=== PATIENT | female | born 1990 | race African-American/Black ===

== ENCOUNTER 2018-04-25 04:28 | Emergency (ER) | payer MEDICAID, OTHER ==
[2018-04-25] MEDS ORDERED: OLANZapine 10 MG/2 ML VIAL IM ONE (04:41)
--- NOTE | 2018-04-25 04:45 | EDPHY ---
H & P Source: Patient, EMS Time Seen by Provider: 04/25/18 04:41 HPI/ROS: HPI CHIEF COMPLAINT: Paranoid HISTORY OF PRESENT ILLNESS: 27-year-old female, history of bipolar disorder, states she recently got out of [facility], down in [place]. She states she got out of the yesterday and somehow ended up in [place]. 911 was called this evening from [facility] as there is concerned about a person acting very strange. EMS make contact with her and she is very paranoid and was brought to the emergency room for evaluation. Upon arrival to the emergency room the patient is very paranoid appears disabled , she is looking around the room asking us to open and close cabinets she is concerned there is something in there. She appears to be having visual hallucinations. Patient states she has not take any of her medications since being discharged from [facility]. States she stayed there for 3 days. Past Medical History: Bipolar disorder Past Surgical History: Denies surgical history Social History: Admits to recent methamphetamine use, denies alcohol. Family History: Noncontributory ROS REVIEW OF SYSTEMS: limited due to patient's mental state. Exam Constitutional triage nursing summary reviewed, vital signs reviewed, awake/ alert. Eyes normal conjunctivae and sclera, EOMI, PERRLA. HENT normal inspection, atraumatic, moist mucus membranes, no epistaxis, neck supple/ no meningismus, no raccoon eyes. Respiratory clear to auscultation bilaterally, normal breath sounds, no respiratory distress, no wheezing. Cardiovascular rate normal, regular rhythm, no murmur, no edema, distal pulses normal. Gastrointestinal soft, non-tender, no rebound, no guarding, normal bowel sounds, no distension, no pulsatile mass. Genitourinary no CVA tenderness. Musculoskeletal no midline vertebral tenderness, full range of motion, no calf swelling, no tenderness of extremities, no meningismus, good pulses, neurovascularly intact. Skin pink, warm, & dry, no rash, skin atraumatic. Neurologic awake, alert and oriented x 3, AAOx3, moves all 4 extremities equally, motor intact, sensory intact, CN II-XII intact, normal cerebellar, normal vision, normal speech. Psychiatric extremely paranoid, looking around the room. Gravely disabled. Heme/Lymph/Immune no lymphadenopathy. Differential Diagnosis: Includes but is not limited to in a particular order underlying bipolar disorder, mood disorder, personality disorder, schizophrenia , sebas, depression, substance abuse, methamphetamine abuse, paranoia, grave disability Medical Decision Making: Plan for this patient given her significant paranoia and peers to be gravely disabled patient need to be placed on M1 hold. I have ordered her 10 mg IM Zyprexa will need blood draw for medical clearance. Patient need mental health evaluation. Drug screen. Re-evaluation: 0445AM: Patient placed on m1 hold for paranoia, and Grave disability. 0700AM: Signed over to Dr. Castaneda. Awaiting blood work. Utox. Then yashira. ( Ishmael Parikh) Constitutional: Initial Vital Signs Temperature (C) 36.6 C 04/25/18 04:25 Heart Rate 116 H 04/25/18 04:25 Respiratory Rate 18 04/25/18 04:25 Blood Pressure 143/84 H 04/25/18 04:25 O2 Sat (%) 97 04/25/18 04:25 O2 Delivery Mode Room Air Allergies/Adverse Reactions: Penicillins Allergy (Verified 04/25/18 05:03) Home Medications: Medication Instructions Recorded Aldactone 04/25/18 Descovy 200-25 mg Tablet 04/25/18 Dolutegravir Sodium [Tivicay] 04/25/18 Finasteride 04/25/18 Gabapentin 04/25/18 Progesterone 04/25/18 Risperdal 04/25/18 Medical Decision Making Other Provider: I assumed care of the patient at 3:00 p.m. pending psychiatric disposition. Updated 8:00 p.m.: The patient was evaluated by Mental Health. She has metabolized her methamphetamine and is now and cooperative. The patient contracts for safety. She does not meet criteria for 72 hr mental health hold. Patient will be given a taxi voucher so that she can go to the homeless assisted. She is comfortable following up with [facility] as a outpatient. The patient's psychiatric hold was vacated by Dr. Davalos. (Curtis Frazier) 0700 care assumed by me from Dr. Parikh pending medical clearance and mental health evaluation. [address] patient signed out to Dr. Frazier pending mental health evaluation after she metabolize his her methamphetamine. (Gino Castaneda) - Data Points Laboratory Results: Laboratory Results 04/25/18 07:45 04/25/18 07:45 Medications Given: Discontinued Medications Lorazepam (Ativan Injection) 2 mg IM EDNOW ONE Stop: 04/25/18 06:11 Last Admin: 04/25/18 06:11 Dose: 2 mg Lorazepam (Ativan) 1 mg PO EDNOW ONE Stop: 04/25/18 09:57 Last Admin: 04/25/18 10:07 Dose: 1 mg Nicotine (Nicoderm Cq) 14 mg TD EDNOW ONE Stop: 04/25/18 14:36 Last Admin: 04/25/18 15:15 Dose: Not Given Nicotine (Nicoderm Cq) 14 mg TD ONCE ONE Stop: 04/25/18 15:01 Last Admin: 04/25/18 15:05 Dose: 14 mg Olanzapine (Zyprexa Injection) 10 mg IM EDNOW ONE Stop: 04/25/18 04:42 Last Admin: 04/25/18 15:15 Dose: Not Given Olanzapine (Zyprexa Zydis) 10 mg PO EDNOW ONE Stop: 04/25/18 04:50 Last Admin: 04/25/18 04:51 Dose: 10 mg Olanzapine (Zyprexa Zydis) 10 mg PO EDNOW ONE Stop: 04/25/18 08:01 Last Admin: 04/25/18 08:18 Dose: 10 mg Departure - Departure Disposition: Home, Routine, Self-Care Clinical Impression: Paranoid delusion, Methamphetamine abuse Condition: Good Instructions: Methamphetamine Abuse (ED) Additional Instructions: 1. Please follow-up with the mental health resources provided in the ED today. 2. [facility] does operate a 11/05 psychiatric crisis unit located at [address] [place] [address]. The telephone number for the 24 hour crisis center is [phone]. 3. Please return to the ED if you are feeling suicidal, having thoughts of harming yourself/others or should you feel unsafe or have worsening symptoms. 4. Do not use methamphetamine Referrals: [facility],. [Clinic] - As per Instructions
[2018-04-25] MEDS ORDERED: OLANZapine DISINTEGR 10 MG TAB PO ONE ×2 (04:49→08:00)
[2018-04-25] MEDS ORDERED: OLANZapine DISINTEGR 10 MG TAB ONE ×3 (04:49→07:41)
[2018-04-25] MEDS ORDERED: LORazepam 2 MG/ML INJ ONE (06:04)
[2018-04-25] MEDS ORDERED: LORazepam 2 MG/ML INJ IM ONE (06:10)
[2018-04-25] MEDS ORDERED: OLANZapine 10 MG/2 ML VIAL ONE (07:32)
[2018-04-25 08:17] LABS: PLATELET COUNT 264 10^3/uL (150-400)
[2018-04-25] MEDS ORDERED: LORazepam 1 MG TAB PO ONE (09:56)
[2018-04-25] MEDS ORDERED: NICOTINE 14 MG/24 HR PATCH TD ONE ×2 (14:35→15:00)
[2018-04-25 15:25] VITALS: BP 113/69
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
--- NOTE | 2018-04-25 21:35 | ASMTTCLDSP ---
TLC Discharge Disposition Disposition: Answers: Discharge If Answers: Yes DISCHARGED: Patient/family given suicide hotline info & SAMHSA brochure? Disposition Notes: Notes: IN CONSULTATION WITH ED PHYSICIAN, ZHANE MCNEIL MD, AND ON-CALL PSYCHIATRIST, Lore CUEVAS MD, BOTH CONCURRED THAT PT DOES NOT APPEAR TO MEET 27-65 CRITERIA REQUIRING INPATIENT HOSPITALIZATION PT DOES NOT APPEAR TO BE AN IMMINENT RISK OF HARM TO SELF/OTHERS/GRAVELY DISABLED DUE TO A MENTAL ILLNESS CONDITION. M1 WAS LIFTED BY DR. KARLA CUEVAS AT 19:30PM. Discharge Concerns/Recommendations: Notes: IN CONSULTATION WITH ED PHYSICIAN, ZHANE MCNEIL MD, AND ON-CALL PSYCHIATRIST, Lore CUEVAS MD, BOTH CONCURRED THAT PT DOES NOT APPEAR TO MEET 27-65 CRITERIA REQUIRING INPATIENT HOSPITALIZATION PT DOES NOT APPEAR TO BE AN IMMINENT RISK OF HARM TO SELF/OTHERS/GRAVELY DISABLED DUE TO A MENTAL ILLNESS CONDITION. M1 WAS LIFTED BY DR. KARLA CUEVAS AT 19:30PM. Was patient given the Answers: Not applicable Inpatient Behavioral Health Prohibited Belongings List while in the ED? Date and time M1 hold 04/25/2018 07:30 PM vacated (time format is hh:mm): Type of Hold: Answers: M1/72-hour Hold Hold initiated by: Answers: ED Physician Date Signed: 04/25/2018 09:34 PM Electronically Signed By:Pat Brandt
== END 2018-04-25 20:48 | disposition home or self-care (01) ==
LOC: EEVIPCON 04:28
DX: F22 Delusional disorders (principal); F15.10 Other stimulant abuse, uncomplicated
CPT/HCPCS: 80305; G0480; J2060

== ENCOUNTER 2018-04-28 19:35 | Emergency (ER) | payer MEDICAID ==
[2018-04-28 20:39] VITALS: BP 100/74
--- NOTE | 2018-04-28 22:23 | EDPHY ---
HPI/HX/ROS/PE/MDM Narrative: CHIEF COMPLAINT: Requesting help with housing and medications HPI: The patient is a 27-year-old transgender patient who identifies as female who presents to the emergency department for somewhat unclear reasons. On my exam, the patient states that they would like assistance in getting a week long supply of all of the medications and transfer via a Medicaid cab to the [facility]. The patient denies any specific complaints including pain or desire for self harm. REVIEW OF SYSTEMS: Aside from elements discussed in the HPI, a comprehensive 10-point review of systems was reviewed and is negative. PMH:Transgender, history of substance abuse and recent psych eval at this ED. SOCIAL HISTORY:Homeless, history of meth use. PHYSICAL EXAM: General:Patient is alert, in no acute distress. ENT:Eyes are normal to inspection. ENT inspection normal. Neck: Normal inspection. Respiratory:No respiratory distress. Neuro: Oriented x3. Normal motor function. Normal sensory function. MDM: The patient was initially placed in a standard exam room by the nursing staff and I was told she was subsequently moved to the mental health zone after repeated requests were made to the patient to stop leaving her exam room and being disruptive to other patients went unheeded. This was all performed without my direct intervention as I was dealing with several critically ill patients. At no time was the patient placed on a detainer or mental health hold and I made it clear that the patient is free to leave should she choose to at any time. At the time of my exam, the patient is on the phone and has a folder containing extensive paperwork out in front of her. She is requesting that we give her a 5 day course of all of her medications and provide her with a "Medicaid cab"down to the [facility]. I explained to her that as an emergency physician, my job is to evaluate for an emergency medical condition and that I see no signs of any emergency medical illness at this time. I explained to her that we are not a dispensing pharmacy and cannot provide her with all of her medications. I offered to consult our case coordinator in the morning should she wish to return but explained that we do not have resources to assist her with finding housing here tonight. I again explained to the patient that she is not under a hold of any kind and is free to leave. She has never been in a locked room or been restrained, despite the fact that she seems to be under that impression. I see no reason why she would require medical transport to anywhere at this time. General Time Seen by Provider: 04/28/18 19:36 Initial Vital Signs: Initial Vital Signs Temperature (C) 37.1 C 04/28/18 20:10 Heart Rate 106 H 04/28/18 20:10 Respiratory Rate 18 04/28/18 20:10 Blood Pressure 100/74 04/28/18 20:10 O2 Sat (%) 95 04/28/18 20:10 O2 Delivery Mode Room Air Allergies/Adverse Reactions: Penicillins Allergy (Verified 04/25/18 05:03) Home Medications: Medication Instructions Recorded Aldactone 04/25/18 Descovy 200-25 mg Tablet 04/25/18 Dolutegravir Sodium [Tivicay] 04/25/18 Finasteride 04/25/18 Gabapentin 04/25/18 Progesterone 04/25/18 Risperdal 04/25/18 Departure - Departure Disposition: Home, Routine, Self-Care Clinical Impression: Nonadherence to medication Condition: Good Instructions: Additional Information Referrals: NONE *PRIMARY CARE P,. [Primary Care Provider] - As per Instructions
== END 2018-04-28 22:36 | disposition home or self-care (01) ==
LOC: EDUNIT#
DX: Z91.14 Patient's other noncompliance with medication regimen (principal)